=== PATIENT | male | born 1980 | race Native Hawaiian/Other Pacific Islander ===

== ENCOUNTER 2016-10-14 16:38 | Emergency (ER) | payer OTHER ==
[2016-10-14 16:56] VITALS: BP 136/79; PULSE 82; RESP 20; TEMP 98.1
--- NOTE | 2016-10-14 17:45 | ED ---
Extremity Problem HPI - General Chief complaint: Extremity Problem,Nontraumatic Stated complaint: Shoulder Pain Time Seen by Provider: 10/14/16 17:06 Source: patient, RN notes reviewed, old records reviewed Mode of arrival: ambulatory Limitations: no limitations - History of Present Illness Initial comments: This is a 36 year old male with CC of right shoulder pain for a few weeks. Pt reports right shoulder pain that started a couple of weeks ago, states his hand goes numb at times. Patient denies any falls or specific injury that he can recall that started the pain. - Related Data Previous Rx's Medication Instructions Recorded HYDROcodone/APAP 5-325MG [[place] 1 - 2 tab PO Q6HR PRN #12 tab 10/14/16 5-325] Ibuprofen [Motrin] 600 mg PO Q6HR PRN #30 tab 10/14/16 Allergies Allergy/AdvReac Type Severity Reaction Status Date / Time No Known Allergies Allergy Verified 10/14/16 16:56 Review of Systems ROS Statement: Those systems with pertinent positive or pertinent negative responses have been documented in the HPI. ROS Other: All systems not noted in ROS Statement are negative. Constitutional: Denies: fever Eyes: Denies: eye pain ENT: Denies: ear pain, throat pain Respiratory: Denies: cough Cardiovascular: Denies: chest pain Endocrine: Denies: fatigue Gastrointestinal: Denies: abdominal pain, nausea Genitourinary: Denies: urgency, dysuria Skin: Denies: rash Neurological: Denies: headache Psychiatric: Denies: anxiety, depression Past Medical History Past Medical History: No Reported History History of Any Multi-Drug Resistant Organisms: None Reported Past Surgical History: No Surgical Hx Reported Past Psychological History: No Psychological Hx Reported Smoking Status: Current every day smoker Past Alcohol Use History: None Reported Past Drug Use History: None Reported General Exam Limitations: no limitations General appearance: alert, in no apparent distress Head exam: Present: atraumatic, normocephalic, normal inspection Eye exam: Present: normal appearance, PERRL, EOMI. Absent: scleral icterus, conjunctival injection, periorbital swelling ENT exam: Present: normal exam, mucous membranes moist Respiratory exam: Present: normal lung sounds bilaterally. Absent: respiratory distress, wheezes, rales, rhonchi, stridor Cardiovascular Exam: Present: regular rate, normal rhythm, normal heart sounds. Absent: systolic murmur, diastolic murmur, rubs, gallop, clicks GI/Abdominal exam: Present: soft, normal bowel sounds. Absent: distended, tenderness, guarding, rebound, rigid Right Shoulder Exam: Present: normal inspection. Absent: full ROM (pain with abduction and unable to preform over head activity. ) Upper Arm exam: Present: normal inspection, full ROM Elbow exam: Present: normal inspection Forearm Wrist exam: Present: normal inspection Hand Wrist exam: Present: normal inspection Neuro motor exam: Present: wrist extension intact, thumb opposition intact, thumb IP flexion intact, thumb adduction intact, fingers 2-5 abduction intact Vascular: Present: normal capillary refill Back exam: Present: normal inspection Neurological exam: Present: alert, oriented X3, CN II-XII intact Course Vital Signs 10/14/16 16:54 Temperature 98.1 F Pulse Rate 82 Respiratory 20 Rate Blood Pressure 136/79 O2 Sat by Pulse 98 Oximetry Medical Decision Making - Medical Decision Making This is a 36 year old male with CC of right shoulder pain for a few weeks. Pt reports right shoulder pain that started a couple of weeks ago, states his hand goes numb at times. Patient denies any falls or specific injury that he can recall that started the pain. Patient has limited ROM of right shoulder due to pain. Patient has normal ROM of elbow and hand. No vascular compromise. Patient likely has rotator cuff injury and nees MRI of shoudler. Patient will be dsicharged with pain medication and sling applied. REturn parameters discussed. Disposition Clinical Impression: Injury of right rotator cuff Disposition: HOME SELF-CARE Condition: Good Instructions: Rotator Cuff Injury (ED) Additional Instructions: Patient has a follow-up with orthopedic physician. Return to emergency department if any alarming signs or symptoms occur. Prescriptions: HYDROcodone/APAP 5-325MG [[place] 5-325] 1 - 2 tab PO Q6HR PRN #12 tab PRN Reason: Pain Ibuprofen [Motrin] 600 mg PO Q6HR PRN #30 tab PRN Reason: Pain Referrals: None,Stated [Primary Care Provider] - 1-2 days Baltazar Barrett PAC [PHYSICIAN CARPENTER APPRENTICE] - 1-2 days Time of Disposition: 17:42
--- NOTE | 2016-10-18 03:04 | CDI ---
Documentation Clarification OP Dear BRIAN Ivory: Please do addendum to ED report for HPI and physical exam. Thank you, Yolanda Unger Crime Scene Investigator If you have any question, Please contact assistant finance manager at [phone] [facility]
== END 2016-10-14 17:56 | disposition home or self-care (01) ==
LOC: EC 16:38
DX: S46.001A Unspecified injury of muscle(s) and tendon(s) of the rotator cuff of right shoulder, initial encounter (principal); F17.200 Nicotine dependence, unspecified, uncomplicated; X58.XXXA Exposure to other specified factors, initial encounter
CPT/HCPCS: 99283

== ENCOUNTER 2019-02-21 14:38 | Emergency (ER) | payer OTHER ==
[2019-02-21 14:55] VITALS: BP 128/85; PULSE 63; RESP 18; TEMP 97.9
--- NOTE | 2019-02-21 16:42 | ED ---
Eye Problem HPI - General Chief complaint: Eye Problems Stated complaint: Eye issue, finger infection Time Seen by Provider: 02/21/19 16:01 Source: patient, RN notes reviewed, old records reviewed Mode of arrival: ambulatory Limitations: no limitations - History of Present Illness Initial comments: This is a 38-year-old male here for evaluation patient with right eye edema and swelling. Denies foreign body and his vision is normal. Patient denies trauma. Patient is swelling and redness is increasing feels a little white dot on his eyelashes. Otherwise no complaints. No significant medical history no recent travel history no family members with similar complaint MD chief complaint: eye pain, eye redness, other (Right eye swelling and edema, erythema) -: days(s) Onset Description: gradual Location: right eye Place: home If Injury: none Eye Symptoms: redness, itching Severity: mild If Pain, Quality: aching Consistency: constant Associated Symptoms: none Treatments Prior to Arrival: none - Related Data Patient Tetanus UTD: No Previous Rx's Medication Instructions Recorded HYDROcodone/APAP 5-325MG [[place] 1 - 2 tab PO Q6HR PRN #12 tab 10/14/16 5-325] Ibuprofen [Motrin] 600 mg PO Q6HR PRN #30 tab 10/14/16 Polymyxin B-Trimeth Sulf Ophth 1 drops RIGHT EYE Q4H #1 bottle 02/21/19 [Polytrim Opthalmic] Sulfamethox-Tmp 800-160Mg [Bactrim 2 tab PO BID #40 tab 02/21/19 DS 800-160 mg] Allergies Allergy/AdvReac Type Severity Reaction Status Date / Time No Known Allergies Allergy Verified 02/21/19 14:53 Review of Systems ROS Statement: Those systems with pertinent positive or pertinent negative responses have been documented in the HPI. ROS Other: All systems not noted in ROS Statement are negative. Past Medical History Past Medical History: No Reported History History of Any Multi-Drug Resistant Organisms: None Reported Past Surgical History: No Surgical Hx Reported Past Psychological History: No Psychological Hx Reported Smoking Status: Current every day smoker Past Alcohol Use History: None Reported Past Drug Use History: None Reported, Marijuana General Exam Limitations: no limitations General appearance: alert, in no apparent distress Head exam: Present: atraumatic, normocephalic, normal inspection Eye exam: Present: normal appearance, PERRL, EOMI, other (Right upper eyelid is swollen and red with some edema on his right eyelash). Absent: scleral icterus, conjunctival injection, periorbital swelling ENT exam: Present: normal exam, mucous membranes moist Neck exam: Present: normal inspection. Absent: tenderness, meningismus, lymphadenopathy Respiratory exam: Present: normal lung sounds bilaterally. Absent: respiratory distress, wheezes, rales, rhonchi, stridor Cardiovascular Exam: Present: regular rate, normal rhythm, normal heart sounds. Absent: systolic murmur, diastolic murmur, rubs, gallop, clicks GI/Abdominal exam: Present: soft, normal bowel sounds. Absent: distended, tenderness, guarding, rebound, rigid Extremities exam: Present: normal inspection, full ROM, normal capillary refill. Absent: tenderness, pedal edema, joint swelling, calf tenderness Back exam: Present: normal inspection Neurological exam: Present: alert, oriented X3, CN II-XII intact Psychiatric exam: Present: normal affect, normal mood Skin exam: Present: warm, dry, intact, normal color. Absent: rash Course Vital Signs 02/21/19 14:53 Temperature 97.9 F Pulse Rate 63 Respiratory 18 Rate Blood Pressure 128/85 O2 Sat by Pulse 98 Oximetry - Reevaluation(s) Reevaluation #1: 02/21/19 16:57 Records reviewed Reevaluation #2: 02/21/19 16:58 Patient's vision remains normal Medical Decision Making - Medical Decision Making 38 male to the ER for evaluation right eye edema and swelling, blepharitis will place on antibiotics patient can be discharged Disposition Clinical Impression: Blepharitis Disposition: HOME SELF-CARE Condition: Good Instructions (If sedation given, give patient instructions): Blepharitis (ED) Prescriptions: Sulfamethox-Tmp 800-160Mg [Bactrim DS 800-160 mg] 2 tab PO BID #40 tab Polymyxin B-Trimeth Sulf Ophth [Polytrim Opthalmic] 1 drops RIGHT EYE Q4H #1 bottle Is patient prescribed a controlled substance at d/c from ED?: No Referrals: Jorge Luis Valencia MD [Primary Care Provider] - 1-2 days
== END 2019-02-21 17:05 | disposition home or self-care (01) ==
LOC: EC 14:38
DX: H01.003 Unspecified blepharitis right eye, unspecified eyelid (principal); F17.200 Nicotine dependence, unspecified, uncomplicated
CPT/HCPCS: 99283

== ENCOUNTER 2019-05-29 03:35 | Inpatient (IN) | payer OTHER ==
[2019-05-29] MEDS ORDERED: ACETAMINOPHEN TAB 325 MG TAB PO STA (04:20)
[2019-05-29] MEDS ORDERED: SODIUM CHLORIDE 0.9% 1,000 ML IV STA (04:20)
--- NOTE | 2019-05-29 04:34 | ED ---
Abdominal Pain HPI - General Chief Complaint: Abdominal Pain Stated Complaint: Constipation/SOB Source: patient, family Mode of arrival: ambulatory Limitations: no limitations - History of Present Illness Initial Comments: Luis is a previously healthy 38-year-old male presents the ER today for evaluation of 3 days of progressively worsening left lower quadrant abdominal pain, fever. Patient reports that over the past 3 days he's had progressively worsening abdominal pain nothing makes better, it gets worse with any palpation or even just deep breathing or movement. Patient denies any change in bowel or bladder habits. Patient has never had a colonoscopy. - Related Data Previous Rx's Medication Instructions Recorded HYDROcodone/APAP 5-325MG [[place] 1 - 2 tab PO Q6HR PRN #12 tab 10/14/16 5-325] Ibuprofen [Motrin] 600 mg PO Q6HR PRN #30 tab 10/14/16 Polymyxin B-Trimeth Sulf Ophth 1 drops RIGHT EYE Q4H #1 bottle 02/21/19 [Polytrim Opthalmic] Sulfamethox-Tmp 800-160Mg [Bactrim 2 tab PO BID #40 tab 02/21/19 DS 800-160 mg] Allergies Allergy/AdvReac Type Severity Reaction Status Date / Time bee venom protein (honey bee) Allergy Severe Anaphylaxis Verified 05/29/19 03:45 Review of Systems ROS Statement: Those systems with pertinent positive or pertinent negative responses have been documented in the HPI. ROS Other: All systems not noted in ROS Statement are negative. Past Medical History Past Medical History: No Reported History History of Any Multi-Drug Resistant Organisms: None Reported Past Surgical History: No Surgical Hx Reported Past Psychological History: No Psychological Hx Reported Smoking Status: Current every day smoker Past Alcohol Use History: None Reported Past Drug Use History: Marijuana General Exam - General Exam Comments Initial Comments: Physical Exam GENERAL: Patient is well-developed and well-nourished. Patient is nontoxic and well- hydrated and is in no distress. HENT: Normocephalic, Atraumatic. EYES: PERRL, EOMI PULMONARY: Unlabored respirations. No audible rales rhonchi or wheezing was noted. CARDIOVASCULAR: There is a regular rate and rhythm without any murmurs gallops or rubs. ABDOMEN: Tenderness to palpation in the left lower quadrant SKIN: Skin is clear with no lesions or rashes and otherwise unremarkable. : Deferred NEUROLOGIC: Patient is alert and oriented x3. Moving all extremities spontaneously MUSCULOSKELETAL: Normal extremities with adequate strength and full range of motion. No lower extremity swelling or edema. No calf tenderness. PSYCHIATRIC: Normal psychiatric evaluation. Limitations: no limitations Course Vital Signs 05/29/19 05/29/19 05/29/19 03:41 03:58 05:59 Temperature 100.1 F H 102.1 F H 99.2 F Pulse Rate 86 66 Respiratory 18 16 Rate Blood Pressure 134/91 115/72 O2 Sat by Pulse 97 97 Oximetry Medical Decision Making - Medical Decision Making The patient was seen and evaluated, history was obtained from the patient history and physical exam are concerning for likely diverticulitis as there is a fever and significant left lower quadrant abdominal pain Labs and imaging ordered Patient was given morphine for pain management Patient's fever and heart rate improved after Tylenol, labs consistent with leukocytosis no significant abnormalities Computed tomography scan did confirm a diverticulitis with microperforations. These findings were discussed with patient's primary care physician Dr. Valencia who agrees with plan for admission for IV antibiotics. - Lab Data Result diagrams: 05/29/19 04:06 05/29/19 04:06 Lab Results 05/29/19 05/29/19 05/29/19 Range/Units 04:06 04:06 04:06 WBC 16.7 H (3.8-10.6) k/uL RBC 4.66 (4.30-5.90) m/uL Hgb 15.0 (13.0-17.5) gm/dL Hct 44.7 (39.0-53.0) % MCV 96.0 (80.0-100.0) fL MCH 32.3 (25.0-35.0) pg MCHC 33.6 (31.0-37.0) g/dL RDW 12.9 (11.5-15.5) % Plt Count 216 (150-450) k/uL Neutrophils % 78 % Lymphocytes % 13 % Monocytes % 7 % Eosinophils % 1 % Basophils % 0 % Neutrophils # 13.1 H (1.3-7.7) k/uL Lymphocytes # 2.1 (1.0-4.8) k/uL Monocytes # 1.1 H (0-1.0) k/uL Eosinophils # 0.1 (0-0.7) k/uL Basophils # 0.1 (0-0.2) k/uL Sodium 133 L (137-145) mmol/L Potassium 3.8 (3.5-5.1) mmol/L Chloride 102 (98-107) mmol/L Carbon Dioxide 23 (22-30) mmol/L Anion Gap 8 mmol/L BUN 9 (9-20) mg/dL Creatinine 0.91 (0.66-1.25) mg/dL Est GFR (CKD-EPI)AfAm >90 (>60 ml/min/1.73 sqM) Est GFR (CKD-EPI)NonAf >90 (>60 ml/min/1.73 sqM) Glucose 140 H (74-99) mg/dL Plasma Lactic Acid Luan 0.9 (0.7-2.0) mmol/L Calcium 8.7 (8.4-10.2) mg/dL Total Bilirubin 1.1 (0.2-1.3) mg/dL AST 38 (17-59) U/L ALT 39 (4-49) U/L Alkaline Phosphatase 74 (38-126) U/L Total Protein 6.7 (6.3-8.2) g/dL Albumin 4.0 (3.5-5.0) g/dL Lipase 32 (23-300) U/L Urine Color Urine Appearance (Clear) Urine pH (5.0-8.0) Ur Specific [place] (1.001-1.035) Urine Protein (Negative) Urine Glucose (UA) (Negative) Urine Ketones (Negative) Urine Blood (Negative) Urine Nitrite (Negative) Urine Bilirubin (Negative) Urine Urobilinogen (<2.0) mg/dL Ur Leukocyte Esterase (Negative) Influenza Type A RNA (Not Detectd) Influenza Type B (PCR) (Not Detectd) 05/29/19 05/29/19 Range/Units 04:06 05:19 WBC (3.8-10.6) k/uL RBC (4.30-5.90) m/uL Hgb (13.0-17.5) gm/dL Hct (39.0-53.0) % MCV (80.0-100.0) fL MCH (25.0-35.0) pg MCHC (31.0-37.0) g/dL RDW (11.5-15.5) % Plt Count (150-450) k/uL Neutrophils % % Lymphocytes % % Monocytes % % Eosinophils % % Basophils % % Neutrophils # (1.3-7.7) k/uL Lymphocytes # (1.0-4.8) k/uL Monocytes # (0-1.0) k/uL Eosinophils # (0-0.7) k/uL Basophils # (0-0.2) k/uL Sodium (137-145) mmol/L Potassium (3.5-5.1) mmol/L Chloride (98-107) mmol/L Carbon Dioxide (22-30) mmol/L Anion Gap mmol/L BUN (9-20) mg/dL Creatinine (0.66-1.25) mg/dL Est GFR (CKD-EPI)AfAm (>60 ml/min/1.73 sqM) Est GFR (CKD-EPI)NonAf (>60 ml/min/1.73 sqM) Glucose (74-99) mg/dL Plasma Lactic Acid Luan (0.7-2.0) mmol/L Calcium (8.4-10.2) mg/dL Total Bilirubin (0.2-1.3) mg/dL AST (17-59) U/L ALT (4-49) U/L Alkaline Phosphatase (38-126) U/L Total Protein (6.3-8.2) g/dL Albumin (3.5-5.0) g/dL Lipase (23-300) U/L Urine Color Light Yellow Urine Appearance Clear (Clear) Urine pH 6.0 (5.0-8.0) Ur Specific [place] 1.008 (1.001-1.035) Urine Protein Negative (Negative) Urine Glucose (UA) Negative (Negative) Urine Ketones Negative (Negative) Urine Blood Negative (Negative) Urine Nitrite Negative (Negative) Urine Bilirubin Negative (Negative) Urine Urobilinogen <2.0 (<2.0) mg/dL Ur Leukocyte Esterase Negative (Negative) Influenza Type A RNA Not Detected (Not Detectd) Influenza Type B (PCR) Not Detected (Not Detectd) Disposition Clinical Impression: Diverticulitis large intestine Disposition: ADMITTED IP TO THIS [facility] Condition: Stable Is patient prescribed a controlled substance at d/c from ED?: No Referrals: Jorge Luis Valencia MD [Primary Care Provider] - 1-2 days
[2019-05-29 04:47] LABS: Basophils # (A) 0.1 k/uL (0-0.2); Basophils % (A) 0 %; Eosinophils # (A) 0.1 k/uL (0-0.7); Eosinophils % (A) 1 %; HCT 44.7 % (39.0-53.0); Lymphocytes # (A) 2.1 k/uL (1.0-4.8); Lymphocytes % (A) 13 %; MCH 32.3 pg (25.0-35.0); MCHC 33.6 g/dL (31.0-37.0); Mean Platelet Volume 8.8; Monocytes # (A) 1.1 k/uL (0-1.0); Monocytes % (A) 7 %; Neutrophils # (A) 13.1 k/uL (1.3-7.7); Neutrophils % (A) 78 %; Platelet Count 216 k/uL (150-450); RBC 4.66 m/uL (4.30-5.90); RDW 12.9 % (11.5-15.5); WBC 16.7 k/uL (3.8-10.6)
--- NOTE | 2019-05-29 04:53 | XR ---
EXAMINATION TYPE: XR chest 2V DATE OF EXAM: 05/29/2019 COMPARISON: NONE HISTORY: Cough and fever TECHNIQUE: FINDINGS: Heart and mediastinum are normal. Lungs are clear. Diaphragm is normal. Bony thorax appears normal. IMPRESSION: Normal chest
--- NOTE | 2019-05-29 04:54 | XR ---
EXAMINATION TYPE: XR abdomen 2V DATE OF EXAM: 05/29/2019 COMPARISON: NONE HISTORY: Abdominal pain TECHNIQUE: Supine and upright views FINDINGS: Bowel gas pattern is normal. There is no sign of intestinal obstruction or pneumoperitoneum . Fecal pattern is normal. There is no evidence of a mass. Lung bases are clear. There are no patholo gic calcifications over the kidneys. IMPRESSION: Nonacute abdomen.
[2019-05-29 04:56] LABS: ALT 39 U/L (4-49); AST 38 U/L (17-59); African American GFR (CKD) >90 (>60 ml/min/1.73 sqM); Alkaline Phosphatase 74 U/L (38-126); Anion Gap 8 mmol/L; Blood Urea Nitrogen 9 mg/dL (9-20); Calcium 8.7 mg/dL (8.4-10.2); Carbon Dioxide 23 mmol/L (22-30); Chloride 102 mmol/L (98-107); Glucose 140 mg/dL (74-99); Non-African American GFR(CKD) >90 (>60 ml/min/1.73 sqM); Potassium 3.8 mmol/L (3.5-5.1); Sodium 133 mmol/L (137-145); Total Bilirubin 1.1 mg/dL (0.2-1.3); Total Protein 6.7 g/dL (6.3-8.2)
[2019-05-29 05:26] LABS: Appearance,Urine Clear (Clear); Bilirubin,Urine Negative (Negative); Blood,Urine Negative (Negative); Color,Urine Light Yellow; Glucose,Urine (UA) Negative (Negative); Ketones,Urine Negative (Negative); Leukocyte Esterase,Urine Negative (Negative); Nitrite,Urine Negative (Negative); Protein,Urine Negative (Negative); Specific Gravity,Urine 1.008 (1.001-1.035); Urobilinogen,Urine <2.0 mg/dL (<2.0)
[2019-05-29] MEDS ORDERED: MORPHINE SULFATE 4 MG/ML SYRINGE IVP STA (05:32)
--- NOTE | 2019-05-29 06:04 | CT ---
EXAM: CT Abdomen and Pelvis With Intravenous Contrast CLINICAL HISTORY: ITS.REASON CT Reason: LLQ pain TECHNIQUE: Axial computed tomography images of the abdomen and pelvis with intravenous contrast. CTDI is 18 mGy and DLP is 541 mGy-cm. This CT exam was performed using one or more of the following dose reduction techniques: automated exposure control, adjustment of the mA and/or kV according to patient size, and/or use of iterative reconstruction technique. COMPARISON: No relevant prior studies available. FINDINGS: Lung bases: No mass. No consolidation. ABDOMEN: Liver: Mild hepatomegaly with steatosis. Gallbladder and bile ducts: Unremarkable. Pancreas: Unremarkable. Spleen: Unremarkable. Adrenals: Unremarkable. Kidneys and ureters: No hydronephrosis. Stomach and bowel: No bowel obstruction. Thickened and inflamed sigmoid colon with underlying diverticulosis. PELVIS: Appendix: No evidence of appendicitis. Bladder: Unremarkable. Reproductive: Unremarkable. ABDOMEN and PELVIS: Intraperitoneal space: Few foci of localized free air adjacent to the sigmoid colon.. Bones/joints: No acute fractures. Soft tissues: Unremarkable. Vasculature: No abdominal aortic aneurysm. Lymph nodes: No enlarged lymph nodes. IMPRESSION: There is thickened sigmoid colon with surrounding inflammation and underlying colonic diverticulosis. Findings are compatible with acute diverticulitis. There is evidence of microperforation as demonstrated by few foci of free air localized outside of the sigmoid colon. Mild hepatomegaly with steatosis.
[2019-05-29] MEDS ORDERED: cefTRIAXone IN SWFI 1,000 MG/10 ML SYRINGE IVP STA (06:10)
[2019-05-29] MEDS ORDERED: metroNIDAZOLE-NS PMX 500 MG in SALINE 1 100ML.BAG IVPB STA (06:11)
[2019-05-29] MEDS ORDERED: NALOXONE 0.4 MG/ML 1 ML VIAL IV PRN (06:37)
[2019-05-29] MEDS ORDERED: ONDANSETRON 4 MG/2 ML VIAL IVP PRN (06:37)
[2019-05-29] MEDS: SODIUM CHLORIDE 0.9% 1,000 ML IV SCH ×3 (07:03→22:58)
[2019-05-29] MEDS: MORPHINE SULFATE 4 MG/ML SYRINGE IV PRN (10:30)
--- NOTE | 2019-05-29 12:42 | P.GSCN ---
<Tanna Castellanos - Last Filed: 05/29/19 12:42> History of Present Illness Consult date: 05/29/19 Reason for Consult: diverticulitis Requesting physician: Jorge Luis Valencia History of present illness: CHIEF COMPLAINT: Abdominal pain HISTORY OF PRESENT ILLNESS: 38-year-old male presented to the emergency room with a chief complaint of abdominal pain. Patient reports he began having abdominal pain on Saturday. He thought he had food poisoning initially. He reports eating pizza and an apple and his pain became so severe that he came to the emergency room. Patient denies nausea or vomiting. Denies diarrhea or consultation. Reports having loose stools at baseline for the last 10-15 years. Denies fever or chills. Patient denies previous history of diverticulitis. Denies family history of diverticulosis. Patient reports having a colonoscopy approximately 15 years ago after traumatic fall from a roof because they thought he was bleeding from his colon. PAST MEDICAL HISTORY: See list. PAST SURGICAL HISTORY: See list. SOCIAL HISTORY: No illicit drug use. Reports smoking cigarettes. REVIEW OF SYSTEMS: CONSTITUTIONAL: Denies fever or chills. HEENT: Denies blurred vision, vision changes, or eye pain. Denies hemoptysis CARDIOVASCULAR: Denies chest pain or pressure. RESPIRATORY: No shortness of breath. GASTROINTESTINAL: Refer to HPI for pertinent findings HEMATOLOGIC: Denies bleeding disorders. GENITOURINARY: Denies any blood in urine. SKIN: Denies pruitis. Denies rash. PHYSICAL EXAM: VITAL SIGNS: Reviewed. GENERAL: Well-developed in no acute distress. HEENT: No sclera icterus. Extraocular movements grossly intact. Moist buccal mucosa. Head is atraumatic, normocephalic. ABDOMEN: Soft. Nondistended. Tenderness with mild palpation to left lower quadrant. NEUROLOGIC: Alert and oriented. Cranial nerves II through XII grossly intact. LABORATORY DATA: WBC 16.7. Hemoglobin 15.0. Platelet count 216. Neutrophils 13.1. Sodium 133. Potassium 3.8. BUN 9. Creatinine 0.91. Lactic acid 0.9. IMAGING: CT abdomen and pelvis: Thickened sigmoid colon with surrounding inflammation and underlying colonic diverticulosis. Findings are compatible with acute diverticulitis. There is evidence of microperforation as demonstrated by few foci of free air localized outside of the sigmoid colon. ASSESSMENT: 1. Left lower quadrant abdominal pain 2. Acute diverticulitis with microperforation 3. Leukocytosis PLAN: Bowel rest. NPO except ice chips sparingly. Continue IV fluids Begin Zosyn Q8 hours Monitor WBC Consult dietitian for diverticulitis education Patient will require outpatient colonoscopy in 4-6 weeks when acute phase has resolved No surgical intervention recommended at this time Nurse practitioner note has been reviewed by physician. Signing provider agrees with the documented findings, assessment, and plan of care. Past Medical History Past Medical History: No Reported History History of Any Multi-Drug Resistant Organisms: None Reported Past Surgical History: No Surgical Hx Reported Past Anesthesia/Blood Transfusion Reactions: Unable to Obtain Additional Past Anesthesia/Blood Transfusion Reaction / Comm: Pt has never had surgery. Smoking Status: Current every day smoker - Past Family History Father Family Medical History: Hypertension Additional Family Medical History / Comment(s): Rasta toscano Mother Family Medical History: CVA/TIA Additional Family Medical History / Comment(s): bradycardia Medications and Allergies Home Medications Medication Instructions Recorded Confirmed Type No Known Home Medications 05/29/19 05/29/19 History Allergies Allergy/AdvReac Type Severity Reaction Status Date / Time bee venom protein (honey bee) Allergy Severe Anaphylaxis Verified 05/29/19 10:38 Surgical - Exam Vital Signs Temp Pulse Resp BP Pulse Ox 100.1 F H 86 18 134/91 97 05/29/19 03:41 05/29/19 03:41 05/29/19 03:41 05/29/19 03:41 05/29/19 03:41 Results - Labs 05/29/19 04:06 05/29/19 04:06 Abnormal Lab Results - Last 24 Hours (Table) 05/29/19 05/29/19 Range/Units 04:06 04:06 WBC 16.7 H (3.8-10.6) k/uL Neutrophils # 13.1 H (1.3-7.7) k/uL Monocytes # 1.1 H (0-1.0) k/uL Sodium 133 L (137-145) mmol/L Glucose 140 H (74-99) mg/dL Diabetes panel 05/29/19 Range/Units 04:06 Sodium 133 L (137-145) mmol/L Potassium 3.8 (3.5-5.1) mmol/L Chloride 102 (98-107) mmol/L Carbon Dioxide 23 (22-30) mmol/L BUN 9 (9-20) mg/dL Creatinine 0.91 (0.66-1.25) mg/dL Glucose 140 H (74-99) mg/dL Calcium 8.7 (8.4-10.2) mg/dL AST 38 (17-59) U/L ALT 39 (4-49) U/L Alkaline Phosphatase 74 (38-126) U/L Total Protein 6.7 (6.3-8.2) g/dL Albumin 4.0 (3.5-5.0) g/dL Calcium panel 05/29/19 Range/Units 04:06 Calcium 8.7 (8.4-10.2) mg/dL Albumin 4.0 (3.5-5.0) g/dL Pituitary panel 05/29/19 Range/Units 04:06 Sodium 133 L (137-145) mmol/L Potassium 3.8 (3.5-5.1) mmol/L Chloride 102 (98-107) mmol/L Carbon Dioxide 23 (22-30) mmol/L BUN 9 (9-20) mg/dL Creatinine 0.91 (0.66-1.25) mg/dL Glucose 140 H (74-99) mg/dL Calcium 8.7 (8.4-10.2) mg/dL Adrenal panel 05/29/19 Range/Units 04:06 Sodium 133 L (137-145) mmol/L Potassium 3.8 (3.5-5.1) mmol/L Chloride 102 (98-107) mmol/L Carbon Dioxide 23 (22-30) mmol/L BUN 9 (9-20) mg/dL Creatinine 0.91 (0.66-1.25) mg/dL Glucose 140 H (74-99) mg/dL Calcium 8.7 (8.4-10.2) mg/dL Total Bilirubin 1.1 (0.2-1.3) mg/dL AST 38 (17-59) U/L ALT 39 (4-49) U/L Alkaline Phosphatase 74 (38-126) U/L Total Protein 6.7 (6.3-8.2) g/dL Albumin 4.0 (3.5-5.0) g/dL <Blade Bobo - Last Filed: 05/29/19 14:57> History of Present Illness History of present illness: As above. Patient with diverticulitis with localized perforation with small amount of air seen in the sigmoid colon mesentery. Patient says his pain is improved. Will begin clear liquids. Continue broad-spectrum antibiotics. Recheck labs tomorrow. Surgical - Exam Vital Signs Temp Pulse Resp BP Pulse Ox 100.1 F H 86 18 134/91 97 05/29/19 03:41 05/29/19 03:41 05/29/19 03:41 05/29/19 03:41 05/29/19 03:41 Results - Labs 05/29/19 04:06 05/29/19 04:06 Abnormal Lab Results - Last 24 Hours (Table) 05/29/19 05/29/19 Range/Units 04:06 04:06 WBC 16.7 H (3.8-10.6) k/uL Neutrophils # 13.1 H (1.3-7.7) k/uL Monocytes # 1.1 H (0-1.0) k/uL Sodium 133 L (137-145) mmol/L Glucose 140 H (74-99) mg/dL Diabetes panel 05/29/19 Range/Units 04:06 Sodium 133 L (137-145) mmol/L Potassium 3.8 (3.5-5.1) mmol/L Chloride 102 (98-107) mmol/L Carbon Dioxide 23 (22-30) mmol/L BUN 9 (9-20) mg/dL Creatinine 0.91 (0.66-1.25) mg/dL Glucose 140 H (74-99) mg/dL Calcium 8.7 (8.4-10.2) mg/dL AST 38 (17-59) U/L ALT 39 (4-49) U/L Alkaline Phosphatase 74 (38-126) U/L Total Protein 6.7 (6.3-8.2) g/dL Albumin 4.0 (3.5-5.0) g/dL Calcium panel 05/29/19 Range/Units 04:06 Calcium 8.7 (8.4-10.2) mg/dL Albumin 4.0 (3.5-5.0) g/dL Pituitary panel 05/29/19 Range/Units 04:06 Sodium 133 L (137-145) mmol/L Potassium 3.8 (3.5-5.1) mmol/L Chloride 102 (98-107) mmol/L Carbon Dioxide 23 (22-30) mmol/L BUN 9 (9-20) mg/dL Creatinine 0.91 (0.66-1.25) mg/dL Glucose 140 H (74-99) mg/dL Calcium 8.7 (8.4-10.2) mg/dL Adrenal panel 05/29/19 Range/Units 04:06 Sodium 133 L (137-145) mmol/L Potassium 3.8 (3.5-5.1) mmol/L Chloride 102 (98-107) mmol/L Carbon Dioxide 23 (22-30) mmol/L BUN 9 (9-20) mg/dL Creatinine 0.91 (0.66-1.25) mg/dL Glucose 140 H (74-99) mg/dL Calcium 8.7 (8.4-10.2) mg/dL Total Bilirubin 1.1 (0.2-1.3) mg/dL AST 38 (17-59) U/L ALT 39 (4-49) U/L Alkaline Phosphatase 74 (38-126) U/L Total Protein 6.7 (6.3-8.2) g/dL Albumin 4.0 (3.5-5.0) g/dL
[2019-05-29 16:01] VITALS: BMI 33.3
[2019-05-29] MEDS: metroNIDAZOLE-NS PMX 500 MG in SALINE 1 100ML.BAG IVPB SCH ×2 (16:20→22:57)
[2019-05-29] MEDS: HYDROmorphone 1 MG/ML 1 ML SYRINGE IVP PRN ×2 (17:00→22:35)
[2019-05-29] MEDS: PIPERACILLIN-TAZOBACTAM 3.375 GM in SODIUM CHLORIDE 0.9% 100 ML IVPB SCH ×2 (17:01→23:21)
--- NOTE | 2019-05-29 20:24 | HP ---
HISTORY AND PHYSICAL CHIEF COMPLAINT: Three or four day history of left lower quadrant pain. HISTORY OF PRESENT ILLNESS: This is a first time admission for this 38-year-old gentleman. He presented to the emergency room with left lower quadrant pain. He was found to have what sounds like diverticulitis with microperforations. He has not had this problem in the past. He is otherwise in fairly good health. REVIEW OF SYSTEMS: He has had no headaches, neurologic problems, difficulty with vision or hearing, chest pain, cough, hemoptysis, hypertension, heart disease, palpitations, nausea, vomiting, hematemesis, melena, hematochezia, jaundice, hepatitis, cirrhosis, renal failure, hematuria, dysuria, frequency, urgency, diabetes, etc. Past medical history, family history, and social history unremarkable or noncontributory otherwise. He is not taking any medications and he is NOT ALLERGIC TO ANY. He has had no surgery. He does smoke. PHYSICAL EXAMINATION: Blood pressure 146/90 with a pulse 68, respirations 16, temperature of 100.2. In general, he appeared to be well-developed, well-nourished, and somewhat uncomfortable. Skin is dry. Lymph nodes are not enlarged. Head, ears, eyes, nose, mouth, and throat are normal. Neck veins not distended. Thyroid is enlarged. Chest clear. Cardiac exam is normal. Abdomen is slightly protuberant. He is very tender in the left lower quadrant with guarding. Bowel sounds are not heard. There are no definite masses. Extremities normal. Neurologically he is intact. IMPRESSION: Acute diverticulitis. PLAN: 1. Bed rest. 2. IV fluids. 3. He will remain NPO. 4. IV antibiotics. 5. Surgical consult for standby. MMODL / IJN: [id number] /
[2019-05-30] MEDS: MORPHINE SULFATE 4 MG/ML SYRINGE IV PRN ×4 (03:53→20:02)
[2019-05-30 06:05] LABS: Basophils % (A) 0 %; Eosinophils # (A) 0.1 k/uL (0-0.7); Eosinophils % (A) 1 %; HCT 39.2 % (39.0-53.0); HGB 12.8 gm/dL (13.0-17.5); Lymphocytes % (A) 17 %; MCH 32.2 pg (25.0-35.0); MCHC 32.6 g/dL (31.0-37.0); MCV 98.6 fL (80.0-100.0); Mean Platelet Volume 8.8; Monocytes % (A) 8 %; Neutrophils # (A) 8.5 k/uL (1.3-7.7); Neutrophils % (A) 72 %; Platelet Count 195 k/uL (150-450); RBC 3.97 m/uL (4.30-5.90); RDW 12.9 % (11.5-15.5); WBC 11.8 k/uL (3.8-10.6)
[2019-05-30] MEDS: metroNIDAZOLE-NS PMX 500 MG in SALINE 1 100ML.BAG IVPB SCH ×3 (08:21→23:10)
[2019-05-30] MEDS: SODIUM CHLORIDE 0.9% 1,000 ML IV SCH ×2 (08:22→14:51)
[2019-05-30] MEDS ORDERED: PANTOPRAZOLE 40 MG/10 ML VIAL IVP SCH (09:00)
[2019-05-30] MEDS: PIPERACILLIN-TAZOBACTAM 3.375 GM in SODIUM CHLORIDE 0.9% 100 ML IVPB SCH ×3 (09:24→23:10)
[2019-05-30] MEDS ORDERED: NICOTINE 21MG/24HR PATCH TRANSDERM SCH (11:30)
--- NOTE | 2019-05-30 11:50 | PN ---
PROGRESS NOTE DATE OF SERVICE: 05/30/2019 CHIEF COMPLAINT: Diverticulitis. HISTORY OF PRESENT ILLNESS: This gentleman is still having quite a bit of discomfort in the left lower quadrant. He wants to leave the hospital. He is upset because he cannot eat and his is not allowed to visit due to the COVID-19 restrictions. PHYSICAL EXAMINATION: Chest is clear. Cardiac exam is normal. The abdomen is still very tender in the left lower quadrant, mid lower abdomen and right lower quadrant. Bowel sounds are present. IMPRESSION: Diverticulitis with microperforations. PLAN: Continue with IV fluids and antibiotics and recommend not leaving the hospital. Will wait to receive other information from Surgery. MMODL / IJN: [id number] /
--- NOTE | 2019-05-30 14:30 | PN ---
PROGRESS NOTE CHIEF COMPLAINT: Diverticulitis. SUBJECTIVE: The patient is complaining of crampy abdominal pain today. He says it is about the same as yesterday. He is afebrile. He is still having bowel activity. No vomiting. White blood cell count is 11.8. OBJECTIVE: ABDOMEN: Soft. Mild left lower quadrant tenderness. No rebound or guarding. ASSESSMENT: [id number] male with diverticulitis. PLAN: 1. Continue clear liquid diet. 2. Continue broad-spectrum antibiotics. 3. Ambulate. 4. Nicotine patch. MMODL / IJN: [id number] /
[2019-05-31] MEDS: MORPHINE SULFATE 4 MG/ML SYRINGE IV PRN (03:31)
[2019-05-31 03:56] VITALS: BP 134/77; PULSE 61; RESP 16; TEMP 97.4
[2019-05-31] MEDS: SODIUM CHLORIDE 0.9% 1,000 ML IV SCH (04:35)
--- NOTE | 2019-06-01 23:50 | DS ---
DISCHARGE SUMMARY DATE OF DISCHARGE: 05/31/2019 CHIEF COMPLAINT: Diverticulitis. HISTORY OF PRESENT ILLNESS AND PHYSICAL EXAMINATION: Details of this man's history and physical can be found in the initial workup. LABORATORY STUDIES: While he was in the hospital he had laboratory studies, details of which can be found in the laboratory section of his chart. COURSE IN THE HOSPITAL: After admission he was placed on bedrest and started on intravenous fluids and IV antibiotics. Temperature came down and his pain was improving. He seemed to be doing well. He was anxious to be discharged on 05/29 and then he signed himself out at 6 in the morning on 05/30. I was not notified that he left the hospital. FINAL DIAGNOSIS: Diverticulitis. OPERATIONS: None. CONSULTATION: General Surgery. He is not improved. MMODL / IJN: [id number] /
== END 2019-05-31 06:45 | disposition home or self-care (01) | DRG 392 ==
LOC: EC 03:35 → 5NMEDONC 06:37
PROVIDERS: ADMIT Family Medicine; ATTEND Family Medicine
DX: K57.20 Diverticulitis of large intestine with perforation and abscess without bleeding (principal); F17.210 Nicotine dependence, cigarettes, uncomplicated; Z91.030 Bee allergy status; Z82.3 Family history of stroke; Z82.49 Family history of ischemic heart disease and other diseases of the circulatory system
CPT/HCPCS: 36415; 71046; 74019; 74177; 80053; 81003; 83605; 83690; 85025; 87502; 96361; 96365; 96375; 99285

== ENCOUNTER 2020-04-06 19:58 | Emergency (ER) | payer OTHER ==
[2020-04-06 20:09] VITALS: BP 150/93; PULSE 86; RESP 20; TEMP 97.6
--- NOTE | 2020-04-06 20:51 | XR ---
EXAMINATION TYPE: XR wrist complete RT DATE OF EXAM: 04/06/2020 COMPARISON: NONE HISTORY: Pain. Fall. TECHNIQUE: 4 views FINDINGS: Carpal bones are intact. Radiocarpal joint appears normal. Scaphoid is intact. There is jhonny e lucency at the base of the fourth metacarpal that could be a nondisplaced fracture. IMPRESSION: Possible nondisplaced fracture of the base of the fourth metacarpal.
--- NOTE | 2020-04-06 20:52 | XR ---
EXAMINATION TYPE: XR forearm RT DATE OF EXAM: 04/06/2020 COMPARISON: NONE HISTORY: Fall. Pain. TECHNIQUE: 2 views FINDINGS: Radius and ulna appear intact. I see no fracture nor dislocation. The elbow joint and radio carpal joint appear intact. IMPRESSION: No acute abnormality of the right forearm.
--- NOTE | 2020-04-06 20:54 | XR ---
EXAMINATION TYPE: XR hand complete RT DATE OF EXAM: 04/06/2020 COMPARISON: NONE HISTORY: Fall. Pain. TECHNIQUE: 3 views FINDINGS: There is oblique lucency through the base of the fourth metacarpal that could be a nondispl aced fracture. The carpal bones are intact. The fingers are intact. IMPRESSION: Possible nondisplaced fourth metacarpal fracture.
[2020-04-06] MEDS ORDERED: HYDROcodone/APAP 5-325MG 1 EACH TAB PO STA (21:03)
--- NOTE | 2020-04-06 21:37 | ED ---
Upper Extremity HPI - General Chief Complaint: Extremity Injury, Upper Stated Complaint: Fall-R hand injury Time Seen by Provider: 04/06/20 20:35 Source: patient Mode of arrival: ambulatory Limitations: no limitations - History of Present Illness Initial Comments: Patient is a 39-year-old male presenting to the emergency Department with complaints of right upper extremity pain after a fall today. Patient states she slipped and fell down a couple stairs at his house this morning. He states he put out his right hand to block his face from hitting the floor. He denies any other injuries or pain from this fall other than pain in his right wrist and right arm. He denies any chest pain, no abdominal pain no pain in any of the 3 other extremities. He has no further complaints from this fall. He is not on blood thinners. - Related Data Home Medications Medication Instructions Recorded Confirmed No Known Home Medications 05/29/19 05/29/19 Allergies Allergy/AdvReac Type Severity Reaction Status Date / Time bee venom protein (honey bee) Allergy Severe Anaphylaxis Verified 04/06/20 20:05 Review of Systems ROS Statement: Those systems with pertinent positive or pertinent negative responses have been documented in the HPI. ROS Other: All systems not noted in ROS Statement are negative. Past Medical History Past Medical History: No Reported History History of Any Multi-Drug Resistant Organisms: None Reported Past Surgical History: No Surgical Hx Reported Past Anesthesia/Blood Transfusion Reactions: Unable to Obtain Additional Past Anesthesia/Blood Transfusion Reaction / Comment(s): Pt has never had surgery. Past Psychological History: No Psychological Hx Reported Smoking Status: Current every day smoker Past Alcohol Use History: None Reported Past Drug Use History: Marijuana - Past Family History Father Family Medical History: Hypertension Additional Family Medical History / Comment(s): Pettibone palsey Mother Family Medical History: CVA/TIA Additional Family Medical History / Comment(s): bradycardia General Exam - General Exam Comments Initial Comments: GENERAL: Patient is well-developed and well-nourished. Patient is nontoxic and in no acute distress. HEAD: Atraumatic, normocephalic. EYES: Pupils equal round and reactive to light, extraocular movements intact, sclera anicteric, conjunctiva are normal. Eyelids were unremarkable. ENT: TMs normal, nares patent, oropharynx clear without exudates. Moist mucous membranes. NECK: Normal range of motion, supple without lymphadenopathy or JVD. LUNGS: Unlabored respirations. Breath sounds clear to auscultation bilaterally and equal. No wheezes rales or rhonchi. HEART: Regular rate and rhythm without murmurs, rubs or gallops. ABDOMEN: Soft, nontender, normoactive bowel sounds. No guarding, no rebound. No masses appreciated. : Deferred MUSCULOSKELETAL: Patient has some swelling to the dorsal aspect of the right hand, pain with palpation of the right hand and right wrist. He does have pain with supination. No pain of the right shoulder, upper arm or right elbow. No clubbing or cyanosis. NEUROLOGICAL: Patient is alert and oriented x 3. Motor and sensory are also intact. Cranial nerves II through XII grossly intact. Symmetrical smile. Normal speech, normal gait. PSYCH: Normal mood, normal affect. SKIN: Warm, Dry, normal turgor, no rashes or lesions noted. Limitations: no limitations Course Vital Signs 04/06/20 20:02 Temperature 97.6 F Pulse Rate 86 Respiratory 20 Rate Blood Pressure 150/93 O2 Sat by Pulse 98 Oximetry Procedures - Orthopedic Splinting/Casting Injury #1 Side: right Upper Extremity Injury Location: hand Upper Extremity Immobilizer: posterior splint, French wrap, synthetic pre-padded splint Medical Decision Making - Medical Decision Making Patient is a 39-year-old male here for right wrist, right hand pain after falling down a few steps today. He denied hitting his head, he has no other injuries from the fall other than this right hand pain. X-rays reveal a possible nondisplaced fourth metacarpal fracture at the base. I did put patient in a posterior splint of the right hand. He will follow up with orthopedics. Recommended alternating Tylenol and Motrin for discomfort, ice to the area. Patient is in agreement this plan of care. He is stable for discharge. Disposition Clinical Impression: Fracture of base of fourth metacarpal bone of right hand Disposition: HOME SELF-CARE Condition: Stable Instructions (If sedation given, give patient instructions): Hand Fracture (ED) Additional Instructions: Please return to the Emergency Department if symptoms worsen or any other concerns. Keep splint in place until follow-up with orthopedics. Please alternate between Tylenol and Motrin for moderate to severe pain. May apply ice to the area, keep hand elevated for swelling control. Follow-up with orthopedics as discussed. Is patient prescribed a controlled substance at d/c from ED?: No Referrals: Jorge Luis Valencia MD [Primary Care Provider] - 1-2 days Isak Morrow MD [STAFF PHYSICIAN] - 1-2 days
== END 2020-04-06 21:48 | disposition home or self-care (01) ==
LOC: EC 19:58
DX: S62.314A Displaced fracture of base of fourth metacarpal bone, right hand, initial encounter for closed fracture (principal); F17.200 Nicotine dependence, unspecified, uncomplicated; Z91.030 Bee allergy status; W10.9XXA Fall (on) (from) unspecified stairs and steps, initial encounter; Y92.009 Unspecified place in unspecified non-institutional (private) residence as the place of occurrence of the external cause
CPT/HCPCS: 29125; 99283

== ENCOUNTER → 2020-07-06 | Outpatient (CLI) | payer OTHER ==
--- NOTE | 2020-07-06 11:30 | MR ---
MRI right hand HISTORY: Trauma and pain, S 62.344D Multiplanar multisequence imaging obtained through the right hand Correlation to plain film 04/06/2020 No abnormal fluid collections. Flexor and extensor tendons are intact. Bone marrow signal is remarkab le for a linear oblique focus which shows decreased signal on T1 and T2-weighted sequences, low signa l on T1 weighted sequences within the proximal fourth metacarpal consistent with nondisplaced intra-a rticular fracture. Some osteoarthritic changes noted at the carpometacarpal joint of the fifth digit, there is some chondral geode formation, marginal spurring, joint space loss. IMPRESSION: Proximal fourth, nondisplaced intra-articular metacarpal fracture is confirmed. 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
== END | disposition home or self-care (01) ==
LOC: RADMRIMAIN 08:40
PROVIDERS: ATTEND Orthopaedic Surgery Hand Surgery
DX: S62.344D Nondisplaced fracture of base of fourth metacarpal bone, right hand, subsequent encounter for fracture with routine healing (principal)

== ENCOUNTER 2022-11-20 10:07 | Emergency (ER) | payer OTHER ==
[2022-11-20] MEDS ORDERED: KETOROLAC 15 MG/ML 1 ML VIAL IVP STA (10:34)
[2022-11-20] MEDS ORDERED: HYDROmorphone 0.5 MG/0.5 ML SYRINGE IVP STA ×2 (10:34→12:57)
[2022-11-20 11:12] LABS: Basophils % (A) 0 %; Eosinophils # (A) 0.1 k/uL (0-0.7); Eosinophils % (A) 1 %; HCT 43.6 % (39.0-53.0); HGB 14.4 gm/dL (13.0-17.5); Lymphocytes # (A) 4.4 k/uL (1.0-4.8); Lymphocytes % (A) 33 %; MCH 32.3 pg (25.0-35.0); MCHC 33.1 g/dL (31.0-37.0); MCV 97.8 fL (80.0-100.0); Mean Platelet Volume 8.6; Monocytes # (A) 0.8 k/uL (0-1.0); Monocytes % (A) 6 %; Neutrophils # (A) 7.7 k/uL (1.3-7.7); Neutrophils % (A) 58 %; Platelet Count 228 k/uL (150-450); RBC 4.46 m/uL (4.30-5.90); WBC 13.2 k/uL (3.8-10.6)
[2022-11-20] MEDS ORDERED: RX INFO: IV CONTRAST WAS GIVEN 1 EACH MISC MISCELLANE PRN (11:17)
--- NOTE | 2022-11-20 11:21 | ED ---
ENT HPI - General Chief complaint: Dental/Oral Stated complaint: wisdom tooth infection sent by urg. care Time Seen by Provider: 11/20/22 10:17 Source: patient, RN notes reviewed Mode of arrival: ambulatory Limitations: no limitations - History of Present Illness Initial comments: This is a 42-year-old male who presents to the emergency department for pain to the right upper jaw. States that he has been dealing with an infection to the wisdom tooth in the right upper jaw for the last week. He just finished a course of Augmentin, but continues to have increasing pain and swelling. He followed up with urgent care today, and they were concerned about an infection spreading into the bone, and instructed him to come to the emergency department. States that he has been unable to sleep due to the pain. Denies any fevers, nausea, or vomiting. He does feel like the swelling is starting to make it hard for him to swallow and speak. Denies any fevers, chills, cough, chest pain, palpitations, abdominal pain, nausea, vomiting, diarrhea, or back pain. MD complaint: tooth pain Onset/Timin -: week(s) - Related Data Previous Rx's Medication Instructions Recorded HYDROcodone/APAP 7.5-325MG [[place] 1 tab PO Q6HR PRN 3 Days #12 tab 11/20/22 7.5-325] clindamycin HCL [Cleocin] 450 mg PO Q8H 7 Days #63 cap 11/20/22 predniSONE 50 mg PO DAILY 5 Days #5 tablet 11/20/22 Allergies Allergy/AdvReac Type Severity Reaction Status Date / Time bee venom protein (honey bee) Allergy Severe Anaphylaxis Verified 11/20/22 10:13 Review of Systems ROS Statement: Those systems with pertinent positive or pertinent negative responses have been documented in the HPI. ROS Other: All systems not noted in ROS Statement are negative. Past Medical History Past Medical History: No Reported History History of Any Multi-Drug Resistant Organisms: None Reported Past Surgical History: No Surgical Hx Reported Past Anesthesia/Blood Transfusion Reactions: Unable to Obtain Additional Past Anesthesia/Blood Transfusion Reaction / Comment(s): Pt has never had surgery. Past Psychological History: No Psychological Hx Reported Smoking Status: Current every day smoker Past Alcohol Use History: None Reported Past Drug Use History: Marijuana - Past Family History Father Family Medical History: Hypertension Additional Family Medical History / Comment(s): Rasta toscano Mother Family Medical History: CVA/TIA Additional Family Medical History / Comment(s): bradycardia General Exam Limitations: no limitations General appearance: alert, in distress Head exam: Present: atraumatic, normocephalic, normal inspection ENT exam: Present: other (Pain and swelling to the right side of the face. Overlying tenderness.) Respiratory exam: Present: wheezes (left upper lobe). Absent: rales, rhonchi, stridor Cardiovascular Exam: Present: regular rate, normal rhythm, normal heart sounds. Absent: systolic murmur, diastolic murmur, rubs, gallop, clicks Neurological exam: Present: alert, oriented X3, CN II-XII intact Psychiatric exam: Present: normal affect, normal mood Course Vital Signs 11/20/22 11/20/22 10:12 13:11 Temperature 98.2 F 98.1 F Pulse Rate 66 60 Respiratory 20 16 Rate Blood Pressure 154/91 122/79 O2 Sat by Pulse 99 100 Oximetry Medical Decision Making - Medical Decision Making This is a 42-year-old male who presents to the emergency department for pain and swelling to the right upper jaw. Was pt. sent in by a medical professional or institution? @ -Urgent Care Did you speak to anyone other than the patient for history? @ -No Did you review nursing and triage notes? @ -Yes, and I agree, it is accurate with regards to the patient's symptoms. Were old charts reviewed? @ -No Differential Diagnosis? @ -Differential Dental Pain: Dental abscess, chipped tooth, dental carries, delio's angina, trigeminal neuralgia, this is not meant to be an all-inclusive list. EKG interpreted by me (3pts min.)? @ -Not obtained X-rays interpreted by me (1pt min.)? @ -Chest x-ray obtained, my interpretation identifies no localized c onsolidations or infiltrates. CT interpreted by me (1pt min.)? @ -Computed tomography scan of the facial bones obtained. My interpretation identifies no evidence of abscess formation. U/S interpreted by me (1pt. min.)? @ -Not obtained What testing was considered but not performed? (CT, X-rays, U/S, labs)? Why? @ -None What meds were considered but not given? Why? @ -None Did you discuss the management of the patient with other professionals? @ -I discussed smoking cessation for greater than 3 minutes. The risk of smoking were discussed with the patient including but not limited to risks of cancer, stroke, coronary artery disease and COPD. Also discussed with patient were multiple methods of quitting smoking. Lastly we discussed the financial cost of smoking. Did you reconcile home meds? @ -No Was smoking cessation discussed for >3mins.? @ -No Was critical care preformed (if so, how long)? @ -No Were there social determinants of health that impacted care today? How? (Homelessness, low income, unemployed, alcoholism, drug addiction, transportation, low edu. Level, literacy, decrease access to med. care, alf, rehab)? @ -No Was there de-escalation of care discussed even if they declined? (Discuss DNR or withdrawal of care, Hospice)? @ -No What co-morbidities impacted this encounter? (DM, HTN, Smoking, COPD, CAD, Cancer, CVA, Hep., AIDS, mental health diagnosis, sleep apnea, morbid obesity)? @ -Smoking Was patient admitted / discharged? @ -Discharged. Lab work obtained revealing leukocytosis, and was otherwise nonactionable. We did obtain a chest x-ray, as the patient had mild wheezing on auscultation. He states that this is not uncommon for him due to his smoking history. X-ray revealed no acute process. Computed tomography scan of the facial bones was obtained as well. This revealed periodontal disease without evidence of abscess formation. Findings discussed with the patient. Given the leukocytosis and continued pain, patient was prescribed clindamycin. Prescription for prednisone and [place] provided as well for additional symptomatic control. He is advised to the [place] sparingly when his pain is the most severe and to avoid driving or operating machinery when taking this. Information for oral surgery follow-up provided. He is instructed to contact them for a follow-up appointment. Undiagnosed new problem with uncertain prognosis? @ -None Drug Therapy requiring intensive monitoring for toxicity (Heparin, Nitro, Insulin, Cardizem)? @ -None Were any procedures done? @ -None Diagnosis/symptom? @ -Dental pain, facial swelling Acute, or Chronic, or Acute on Chronic? @ -Acute Uncomplicated (without systemic symptoms) or Complicated (systemic symptoms)? @ -Uncomplicated Side effects of treatment? @ -None Exacerbation, Progression, or Severe Exacerbation] @ -Not applicable Poses a threat to life or bodily function? @ -No Return precautions reviewed in depth, the patient is instructed to return to the emergency department with any new, worsening, or concerning symptoms. Patient verbalized understanding. This case was discussed in detail with the attending ED physician, Dr. Owens. Presentation, findings, and treatment plan discussed in detail as well. - Lab Data Result diagrams: 11/20/22 11:08 11/20/22 11:08 Lab Results 11/20/22 11/20/22 11/20/22 Range/Units 11:08 11:08 11:08 WBC 13.2 H (3.8-10.6) k/uL RBC 4.46 (4.30-5.90) m/uL Hgb 14.4 (13.0-17.5) gm/dL Hct 43.6 (39.0-53.0) % MCV 97.8 (80.0-100.0) fL MCH 32.3 (25.0-35.0) pg MCHC 33.1 (31.0-37.0) g/dL RDW 13.0 (11.5-15.5) % Plt Count 228 (150-450) k/uL MPV 8.6 Neutrophils % 58 % Lymphocytes % 33 % Monocytes % 6 % Eosinophils % 1 % Basophils % 0 % Neutrophils # 7.7 (1.3-7.7) k/uL Lymphocytes # 4.4 (1.0-4.8) k/uL Monocytes # 0.8 (0-1.0) k/uL Eosinophils # 0.1 (0-0.7) k/uL Basophils # 0.0 (0-0.2) k/uL ESR 3 (0-15) mm/hr Sodium 138 (137-145) mmol/L Potassium 4.3 (3.5-5.1) mmol/L Chloride 105 (98-107) mmol/L Carbon Dioxide 27 (22-30) mmol/L Anion Gap 6 mmol/L BUN 19 (9-20) mg/dL Creatinine 0.95 (0.66-1.25) mg/dL Est GFR (CKD-EPI)AfAm >90 (>60 ml/min/1.73 sqM) Est GFR (CKD-EPI)NonAf >90 (>60 ml/min/1.73 sqM) Glucose 87 (74-99) mg/dL Plasma Lactic Acid Luan 1.1 (0.7-2.0) mmol/L Calcium 8.9 (8.4-10.2) mg/dL Total Bilirubin 0.5 (0.2-1.3) mg/dL AST 25 (17-59) U/L ALT 26 (4-49) U/L Alkaline Phosphatase 46 (38-126) U/L C-Reactive Protein 0.6 (<1.0) mg/dL Total Protein 6.9 (6.3-8.2) g/dL Albumin 4.1 (3.5-5.0) g/dL Influenza Type A (PCR) (Not Detectd) Influenza Type B (PCR) (Not Detectd) RSV (PCR) (Not Detectd) SARS-CoV-2 (PCR) (Not Detectd) 11/20/22 Range/Units 11:08 WBC (3.8-10.6) k/uL RBC (4.30-5.90) m/uL Hgb (13.0-17.5) gm/dL Hct (39.0-53.0) % MCV (80.0-100.0) fL MCH (25.0-35.0) pg MCHC (31.0-37.0) g/dL RDW (11.5-15.5) % Plt Count (150-450) k/uL MPV Neutrophils % % Lymphocytes % % Monocytes % % Eosinophils % % Basophils % % Neutrophils # (1.3-7.7) k/uL Lymphocytes # (1.0-4.8) k/uL Monocytes # (0-1.0) k/uL Eosinophils # (0-0.7) k/uL Basophils # (0-0.2) k/uL ESR (0-15) mm/hr Sodium (137-145) mmol/L Potassium (3.5-5.1) mmol/L Chloride (98-107) mmol/L Carbon Dioxide (22-30) mmol/L Anion Gap mmol/L BUN (9-20) mg/dL Creatinine (0.66-1.25) mg/dL Est GFR (CKD-EPI)AfAm (>60 ml/min/1.73 sqM) Est GFR (CKD-EPI)NonAf (>60 ml/min/1.73 sqM) Glucose (74-99) mg/dL Plasma Lactic Acid Luan (0.7-2.0) mmol/L Calcium (8.4-10.2) mg/dL Total Bilirubin (0.2-1.3) mg/dL AST (17-59) U/L ALT (4-49) U/L Alkaline Phosphatase (38-126) U/L C-Reactive Protein (<1.0) mg/dL Total Protein (6.3-8.2) g/dL Albumin (3.5-5.0) g/dL Influenza Type A (PCR) Not Detected (Not Detectd) Influenza Type B (PCR) Not Detected (Not Detectd) RSV (PCR) Not Detected (Not Detectd) SARS-CoV-2 (PCR) Not Detected (Not Detectd) - Radiology Data Radiology results: report reviewed, image reviewed Disposition Clinical Impression: Pain, dental, Facial swelling, Nicotine dependence Disposition: HOME SELF-CARE Instructions (If sedation given, give patient instructions): Toothache (ED) Additional Instructions: Return to the emergency department with any new, worsening, or concerning symptoms. Start taking the new antibiotic as prescribed for 7 days. You will take the prednisone daily for 5 days. Take the [place] sparingly when your pain is the most severe and otherwise take Tylenol. Be aware that the [place] may make you drowsy and you should avoid driving or operating machinery when taking this. Contact the oral surgeon as listed below as soon as you get home for a follow- up appointment and further evaluation of ongoing symptoms. Follow up with your primary care provider in 1-2 days. Prescriptions: clindamycin HCL [Cleocin] 450 mg PO Q8H 7 Days #63 cap HYDROcodone/APAP 7.5-325MG [[place] 7.5-325] 1 tab PO Q6HR PRN 3 Days #12 tab PRN Reason: Pain predniSONE 50 mg PO DAILY 5 Days #5 tablet Is patient prescribed a controlled substance at d/c from ED?: Yes When asked, does pt state using other controlled substances?: No If prescribed controlled substance>3 days was MAPS reviewed?: Prescribed <3 Days Referrals: Jorge Luis Valencia MD [Primary Care Provider] - 1-2 days Jerod Amaya DDS [STAFF PHYSICIAN] - 1-2 days
[2022-11-20 11:26] LABS: ALT 26 U/L (4-49); AST 25 U/L (17-59); African American GFR (CKD) >90 (>60 ml/min/1.73 sqM); Albumin 4.1 g/dL (3.5-5.0); Alkaline Phosphatase 46 U/L (38-126); Anion Gap 6 mmol/L; Blood Urea Nitrogen 19 mg/dL (9-20); C Reactive Protein 0.6 mg/dL (<1.0); Calcium 8.9 mg/dL (8.4-10.2); Carbon Dioxide 27 mmol/L (22-30); Chloride 105 mmol/L (98-107); Glucose 87 mg/dL (74-99); Non-African American GFR(CKD) >90 (>60 ml/min/1.73 sqM); Potassium 4.3 mmol/L (3.5-5.1); Sodium 138 mmol/L (137-145); Total Bilirubin 0.5 mg/dL (0.2-1.3); Total Protein 6.9 g/dL (6.3-8.2)
--- NOTE | 2022-11-20 11:41 | XR ---
EXAMINATION TYPE: XR chest 2V DATE OF EXAM: 11/20/2022 COMPARISON: 05/29/2019 TECHNIQUE: PA and lateral views submitted. HISTORY: Shortness of breath FINDINGS: The lungs are clear and there is no pneumothorax, pleural effusion, or focal pneumonia. Heart size normal and no overt failure. Osseous structures intact. Biapical pleural thickening. IMPRESSION: 1. No acute process.
--- NOTE | 2022-11-20 12:32 | CT ---
EXAMINATION TYPE: CT facial bones w con CT DLP: 722.8 mGycm, Automated exposure control for dose reduction was used. DATE OF EXAM: 11/20/2022 12:25 PM COMPARISON: None. CLINICAL INDICATION:Male, 42 years old with history of Right upper jaw pain and swelling; PHH, Right upper jaw pain and swelling TECHNIQUE: Multiple unenhanced axial CT images were obtained of the facial bones soft tissue and bone windows. Coronal, axial and sagittal reformatted images were also provided in soft tissue and bone windows and submitted for interpretation. FINDINGS: The right upper jaw second molar periapical lucency with cavity within the molar itself. No organizing fluid collection. There is no evidence of fracture, subluxation, dislocation, or signific ant soft tissue swelling. The orbital contents are unremarkable.The temporal-mandibular joints appear symmetric. Mild scattered paranasal sinus disease. IMPRESSION: Right upper second molar periodontal disease likely correlate with patient's pain. No evidence for ab scess formation.
[2022-11-20 12:40] LABS: Erythrocyte Sedimentation Rate 3 mm/hr (0-15)
[2022-11-20] MEDS ORDERED: DEXAMETHASONE SOD PHOSPHATE 10 MG/ML 1 ML VIAL IVP STA (12:57)
[2022-11-20 13:12] VITALS: BP 122/79; PULSE 60; RESP 16; TEMP 98.1
== END 2022-11-20 13:33 | disposition home or self-care (01) ==
LOC: EC 10:07
DX: K08.89 Other specified disorders of teeth and supporting structures (principal); R22.0 Localized swelling, mass and lump, head; R06.2 Wheezing; F17.210 Nicotine dependence, cigarettes, uncomplicated; F12.90 Cannabis use, unspecified, uncomplicated; Z20.822 Contact with and (suspected) exposure to COVID-19; Z91.030 Bee allergy status
CPT/HCPCS: 36415; 80053; 85652; 83605; 85025; 86140; 87636; 71046; 70487; 99284; 96374; 96375 ×2; 96376; J1100; J1885; J1170; Q9967

== ENCOUNTER 2023-06-09 14:08 | Emergency (ER) | payer OTHER ==
[2023-06-09 14:41] VITALS: BP 152/87; PULSE 69; RESP 16; TEMP 98.8
--- NOTE | 2023-06-09 14:46 | ED ---
General Adult HPI - General Chief complaint: Dental/Oral Stated complaint: tooth pain Time Seen by Provider: 06/09/23 14:38 Source: patient, RN notes reviewed Mode of arrival: ambulatory Limitations: no limitations - History of Present Illness Initial comments: 42-year-old male presents to the emergency department for evaluation of dental pain. He states that this started 2 to 3 days ago. He does note that it is in the upper left wisdom tooth. He states that his worse with eating. He denies recent fever, chills, nausea, vomiting. Denies any difficulty breathing or swallowing. He has been taking ibuprofen for pain which is somewhat helpful. He states that he was not able to get into his dentist today because it is the weekend. - Related Data Previous Rx's Medication Instructions Recorded HYDROcodone/APAP 7.5-325MG [[place] 1 tab PO Q6HR PRN 3 Days #12 tab 11/20/22 7.5-325] clindamycin HCL [Cleocin] 450 mg PO Q8H 7 Days #63 cap 11/20/22 predniSONE 50 mg PO DAILY 5 Days #5 tablet 11/20/22 Amoxic-Pot Clav 875-125Mg 1 tab PO Q12HR 7 Days #14 tab 06/09/23 [Augmentin 875-125] Allergies Allergy/AdvReac Type Severity Reaction Status Date / Time bee venom protein (honey bee) Allergy Severe Anaphylaxis Verified 11/20/22 10:13 Review of Systems ROS Statement: Those systems with pertinent positive or pertinent negative responses have been documented in the HPI. ROS Other: All systems not noted in ROS Statement are negative. Past Medical History Past Medical History: No Reported History History of Any Multi-Drug Resistant Organisms: None Reported Past Surgical History: No Surgical Hx Reported Past Anesthesia/Blood Transfusion Reactions: Unable to Obtain Additional Past Anesthesia/Blood Transfusion Reaction / Comment(s): Pt has never had surgery. Past Psychological History: No Psychological Hx Reported Smoking Status: Current every day smoker Past Alcohol Use History: None Reported Past Drug Use History: Marijuana - Past Family History Father Family Medical History: Hypertension Additional Family Medical History / Comment(s): Rasta toscano Mother Family Medical History: CVA/TIA Additional Family Medical History / Comment(s): bradycardia General Exam Limitations: no limitations General appearance: alert, in no apparent distress Head exam: Present: atraumatic, normocephalic, normal inspection Eye exam: Present: normal appearance, PERRL, EOMI. Absent: scleral icterus, conjunctival injection, periorbital swelling ENT exam: Present: mucous membranes moist, TM's normal bilaterally, normal external ear exam, other (Tenderness of the left upper wisdom tooth, No visible drainable abscess) Neck exam: Present: normal inspection. Absent: tenderness, meningismus, lymphadenopathy Respiratory exam: Present: normal lung sounds bilaterally. Absent: respiratory distress, wheezes, rales, rhonchi, stridor Cardiovascular Exam: Present: regular rate, normal rhythm, normal heart sounds. Absent: systolic murmur, diastolic murmur, rubs, gallop, clicks Extremities exam: Present: normal inspection, full ROM, normal capillary refill. Absent: tenderness, pedal edema, joint swelling, calf tenderness Back exam: Present: normal inspection Neurological exam: Present: alert, oriented X3 Psychiatric exam: Present: normal affect, normal mood Skin exam: Present: warm, dry, intact, normal color. Absent: rash Course Vital Signs 06/09/23 14:33 Temperature 98.8 F Pulse Rate 69 Respiratory 16 Rate Blood Pressure 152/87 O2 Sat by Pulse 98 Oximetry Medical Decision Making - Medical Decision Making Was pt. sent in by a medical professional or institution (, PA, TECHNICAL ASSISTANCE CONSULTANT, urgent care, hospital, or prison...) When possible be specific @ -No Did you speak to anyone other than the patient for history (EMS, parent, family, police, friend...)? What history was obtained from this source @ -No Did you review nursing and triage notes (agree or disagree)? Why? @ -I reviewed and agree with nursing and triage notes Were old charts reviewed (outside hosp., previous admission, EMS record, old EKG, old radiological studies, urgent care reports/EKG's, prison records)? Report findings @ -No old charts were reviewed Differential Diagnosis (chest pain, altered mental status, abdominal pain women, abdominal pain men, vaginal bleeding, weakness, fever, dyspnea, syncope, headache, dizziness, GI bleed, back pain, seizure, CVA, palpatations, mental health, musculoskeletal)? @ -Dental infection, dental abscess, dental appliance issue, parotiditis, strep throat, this list is not all inclusive EKG interpreted by me (3pts min.). @ -None X-rays interpreted by me (1pt min.). @ -None done CT interpreted by me (1pt min.). @ -None done U/S interpreted by me (1pt. min.). @ -None done What testing was considered but not performed or refused? (CT, X-rays, U/S, labs)? Why? @ -None What meds were considered but not given or refused? Why? @ -None Did you discuss the management of the patient with other professionals (alisha tinoco i.eGriselda Castro, PA, TECHNICAL ASSISTANCE CONSULTANT, lab, RT, psych nurse, sexual assault social worker, senior production supervisor, teacher, foreign policy officer, disease case manager)? Give summary @ -No Was smoking cessation discussed for >3mins.? @ -No Was critical care preformed (if so, how long)? @ -No Were there social determinants of health that impacted care today? How? (Homelessness, low income, unemployed, alcoholism, drug addiction, transportation, low edu. Level, literacy, decrease access to med. care, fdc, rehab)? @ -No Was there de-escalation of care discussed even if they declined (Discuss DNR or withdrawal of care, Hospice)? DNR status @ -No What co-morbidities impacted this encounter? (DM, HTN, Smoking, COPD, CAD, Cancer, CVA, ARF, Chemo, Hep., AIDS, mental health diagnosis, sleep apnea, morbid obesity)? @ -None Was patient admitted / discharged? Hospital course, mention meds given and route, prescriptions, significant lab abnormalities, going to OR and other pertinent info. @ -Discharge. Patient presented to the emergency department for evaluation of left upper dentition pain. He states that the pain is in his left upper wisdom tooth. This has been going on for around 2-3 days. There is no visible drainable abscess, no lymphadenopathy, normal TMs. Patient will be provided medication for pain control and antibiotics. Advised to follow-up with his dentist. Patient understanding and agreeable with this plan. Patient stable at time of discharge. Case discussed with Dr. Doss Undiagnosed new problem with uncertain prognosis? @ -No Drug Therapy requiring intensive monitoring for toxicity (Heparin, Nitro, Insulin, Cardizem)? @ -No Were any procedures done? @ -No Diagnosis/symptom? @ -Dental pain Acute, or Chronic, or Acute on Chronic? @ -acute Uncomplicated (without systemic symptoms) or Complicated (systemic symptoms)? @ -Uncomplicated Side effects of treatment? @ -No Exacerbation, Progression, or Severe Exacerbation? @ -No Poses a threat to life or bodily function? How? (Chest pain, [place], [place], pneumonia, PE, COPD, DKA, ARF, appy, cholecystitis, CVA, Diverticulitis, Homicidal, Suicidal, threat to staff... and all critical care pts) @ -No Disposition Clinical Impression: Dental abscess Disposition: HOME SELF-CARE Condition: Stable Instructions (If sedation given, give patient instructions): Toothache (ED) Additional Instructions: Please follow-up with your dentist. Take antibiotics to completion. Utilize ibuprofen with pain medication. Return to the emergency department for new or worsening symptoms. Prescriptions: Amoxic-Pot Clav 875-125Mg [Augmentin 875-125] 1 tab PO Q12HR 7 Days #14 tab Is patient prescribed a controlled substance at d/c from ED?: No Referrals: Jorge Luis Valencia MD [Primary Care Provider] - 1-2 days
[2023-06-09] MEDS: KETOROLAC 15 MG/ML 1 ML VIAL IM STA (15:33)
[2023-06-09] MEDS: ACET/COD 300 MG/30 MG STARTER PACK 6 TAB BTL PO STA (15:33)
[2023-06-09] MEDS: HYDROcodone/APAP 5-325MG 1 EACH TAB PO STA (15:33)
== END 2023-06-09 15:40 | disposition home or self-care (01) ==
LOC: EC 14:08
DX: K04.7 Periapical abscess without sinus (principal); F17.200 Nicotine dependence, unspecified, uncomplicated; Z91.030 Bee allergy status
CPT/HCPCS: 99282; 96372; J1885

== ENCOUNTER 2024-06-11 20:20 | Emergency (ER) | payer OTHER ==
--- NOTE | 2024-06-11 22:19 | ED ---
General Adult HPI <Liest Moreira - Last Filed: 06/12/24 01:44> - General Source: patient, RN notes reviewed Mode of arrival: ambulatory Limitations: no limitations <Elina Ram - Last Filed: 06/13/24 02:07> - General Chief complaint: Abdominal Pain Stated complaint: ABD pain Time Seen by Provider: 06/11/24 21:06 - History of Present Illness Initial comments: 43-year-old male presents to the emergency department for evaluation of right- sided abdominal pain. Patient states that this started around 3 AM today. He reports that the pain has progressively been worsening. He denies any fever adm its to chills. Admits to nausea without vomiting. He reports decrease in urinary frequency. He reports increased urge to urinate. Denies any prior abdominal surgeries. He does report a history of hypertension but is not currently being treated for this. (Elina Ram) - Related Data Previous Rx's Medication Instructions Recorded HYDROcodone/APAP 7.5-325MG [Baldwin 1 tab PO Q6HR PRN 3 Days #12 tab 11/20/22 7.5-325] clindamycin HCL [Cleocin] 450 mg PO Q8H 7 Days #63 cap 11/20/22 predniSONE 50 mg PO DAILY 5 Days #5 tablet 11/20/22 Amoxic-Pot Clav 875-125Mg 1 tab PO Q12HR 7 Days #14 tab 06/09/23 [Augmentin 875-125] Amoxic-Pot Clav 875-125Mg 1 tab PO Q12HR 10 Days #20 tab 06/12/24 [Augmentin 875-125] Allergies Allergy/AdvReac Type Severity Reaction Status Date / Time bee venom protein (honey bee) Allergy Severe Anaphylaxis Verified 11/20/22 10:13 Review of Systems ROS Other: All systems not noted in ROS Statement are negative. <Liset Moreira - Last Filed: 06/12/24 01:44> ROS Other: All systems not noted in ROS Statement are negative. <Elina Ram - Last Filed: 06/13/24 02:07> ROS Statement: Those systems with pertinent positive or pertinent negative responses have been documented in the HPI. Past Medical History Past Medical History: No Reported History History of Any Multi-Drug Resistant Organisms: None Reported Past Surgical History: No Surgical Hx Reported Past Anesthesia/Blood Transfusion Reactions: Unable to Obtain Additional Past Anesthesia/Blood Transfusion Reaction / Comment(s): Pt has never had surgery. Past Psychological History: No Psychological Hx Reported Smoking Status: Current every day smoker Past Alcohol Use History: None Reported Past Drug Use History: Marijuana - Past Family History Father Family Medical History: Hypertension Additional Family Medical History / Comment(s): Willard palsey Mother Family Medical History: CVA/TIA Additional Family Medical History / Comment(s): bradycardia <Elina Ram - Last Filed: 06/13/24 02:07> General Exam Limitations: no limitations General appearance: alert, in no apparent distress Head exam: Present: atraumatic, normocephalic, normal inspection Eye exam: Present: normal appearance, PERRL, EOMI. Absent: scleral icterus, conjunctival injection, periorbital swelling ENT exam: Present: normal exam, mucous membranes moist Neck exam: Present: normal inspection. Absent: tenderness, meningismus, lymphadenopathy Respiratory exam: Present: normal lung sounds bilaterally. Absent: respiratory distress, wheezes, rales, rhonchi, stridor Cardiovascular Exam: Present: regular rate, normal rhythm, normal heart sounds. Absent: systolic murmur, diastolic murmur, rubs, gallop, clicks GI/Abdominal exam: Present: soft, tenderness, normal bowel sounds. Absent: distended, guarding, rebound, rigid Extremities exam: Present: normal inspection, full ROM, normal capillary refill. Absent: tenderness, pedal edema, joint swelling, calf tenderness Back exam: Present: normal inspection Neurological exam: Present: alert, oriented X3 Psychiatric exam: Present: normal affect, normal mood Skin exam: Present: warm, dry, intact, normal color. Absent: rash <Elina Ram - Last Filed: 06/13/24 02:07> Course Vital Signs 06/11/24 06/12/24 06/12/24 20:39 00:31 02:00 Temperature 98 F 97.7 F 97.7 F Pulse Rate 82 78 65 Respiratory 20 20 18 Rate Blood Pressure 141/89 120/78 129/74 O2 Sat by Pulse 98 97 98 Oximetry Medical Decision Making - Lab Data Result diagrams: 06/11/24 22:22 06/11/24 21:49 <Liset Moreira - Last Filed: 06/12/24 01:44> - Lab Data Result diagrams: 06/11/24 22:22 06/11/24 21:49 <Elina Ram - Last Filed: 06/13/24 02:07> - Medical Decision Making Was pt. sent in by a medical professional or institution (BRIAN Castro, CIRCUIT BOARD INSPECTOR, urgent care, hospital, or senior living...) When possible be specific @ -No Did you speak to anyone other than the patient for history (EMS, parent, family, police, friend...)? What history was obtained from this source @ -No Did you review nursing and triage notes (agree or disagree)? Why? @ -I reviewed and agree with nursing and triage notes Were old charts reviewed (outside hosp., previous admission, EMS record, old EKG, old radiological studies, urgent care reports/EKG's, senior living records)? Report findings @ -No old charts were reviewed Differential Diagnosis (chest pain, altered mental status, abdominal pain women, abdominal pain men, vaginal bleeding, weakness, fever, dyspnea, syncope, headache, dizziness, GI bleed, back pain, seizure, CVA, palpatations, mental health, musculoskeletal)? @ -Differential Abdominal Pain Men: Appendicitis, cholecystitis, diverticulosis, ischemic bowel, pancreatitis, hepatitis, UTI, gastroenteritis, AAA, incarcerated hernia, bowel obstruction, constipation, inflammatory bowel, hepatitis, peptic ulcer disease, splenic infarction, perforated viscus, testicular torsion, this is not meant to be an all-inclusive list EKG interpreted by me (3pts min.). @ -None X-rays interpreted by me (1pt min.). @ -None done CT interpreted by me (1pt min.). @ -CT abdomen pelvis shows findings consistent with colitis moderate pericolonic fat stranding with no free air no organizing abscess] U/S interpreted by me (1pt. min.). @ -None done What testing was considered but not performed or refused? (CT, X-rays, U/S, labs)? Why? @ -None What meds were considered but not given or refused? Why? @ -None Did you discuss the management of the patient with other professionals (professionals i.e. BRIAN Castro, CIRCUIT BOARD INSPECTOR, lab, RT, psych nurse, protective services social worker, radiator core tester, teacher, environmental technical officer, correctional case records supervisor)? Give summary @ -No Was smoking cessation discussed for >3mins.? @ -No Was critical care preformed (if so, how long)? @ -No Were there social determinants of health that impacted care today? How? (Homelessness, low income, unemployed, alcoholism, drug addiction, transportation, low edu. Level, literacy, decrease access to med. care, penitentiary, rehab)? @ -No Was there de-escalation of care discussed even if they declined (Discuss DNR or withdrawal of care, Hospice)? DNR status @ -No What co-morbidities impacted this encounter? (DM, HTN, Smoking, COPD, CAD, Cancer, CVA, ARF, Chemo, Hep., AIDS, mental health diagnosis, sleep apnea, morbid obesity)? @ -None Was patient admitted / discharged? Hospital course, mention meds given and route, prescriptions, significant lab abnormalities, going to OR and other p ertinent info. @ -Patient presented the emergency department for evaluation of abdominal pain. Laboratory studies were obtained revealing leukocytosis at 14.3, hemoglobin 14.7; CMP nonactionable, no significant lactic acidosis; UA shows no evidence of infectious process. CT of the abdomen pelvis was obtained pending results, patient was signed out to Liset Moreira PA-C for scan results and d isposition. The findings of the CT showed revealing findings consistent with colitis with moderate pericolonic fat stranding, no free air or organizing abscess. Patient was started on antibiotics and discharged home. Undiagnosed new problem with uncertain prognosis? @ -No Drug Therapy requiring intensive monitoring for toxicity (Heparin, Nitro, Insulin, Cardizem)? @ -No Were any procedures done? @ -No Diagnosis/symptom? @ -Colitis Acute, or Chronic, or Acute on Chronic? @ -Acute Uncomplicated (without systemic symptoms) or Complicated (systemic symptoms)? @ -Uncomplicated Side effects of treatment? @ -No Exacerbation, Progression, or Severe Exacerbation? @ -No Poses a threat to life or bodily function? How? (Chest pain, [place], [place], pneumonia, PE, COPD, DKA, ARF, appy, cholecystitis, CVA, Diverticulitis, Homicidal, Suicidal, threat to staff... and all critical care pts) @ -No (Elina Ram) - Lab Data Lab Results 06/11/24 06/11/2425 Range/Units 21:49 21:49 21:49 WBC (3.8-10.6) k/uL RBC (4.30-5.90) m/uL Hgb (13.0-17.5) gm/dL Hct (39.0-53.0) % MCV (80.0-100.0) fL MCH (25.0-35.0) pg MCHC (31.0-37.0) g/dL RDW (11.5-15.5) % Plt Count (150-450) k/uL MPV Neutrophils % % Lymphocytes % % Monocytes % % Eosinophils % % Basophils % % Neutrophils # (1.3-7.7) k/uL Lymphocytes # (1.0-4.8) k/uL Monocytes # (0-1.0) k/uL Eosinophils # (0-0.7) k/uL Basophils # (0-0.2) k/uL Sodium 135 L (137-145) mmol/L Potassium 3.6 (3.5-5.1) mmol/L Chloride 100 (98-107) mmol/L Carbon Dioxide 27 (22-30) mmol/L Anion Gap 8 mmol/L BUN 12 (9-20) mg/dL Creatinine 0.90 (0.66-1.25) mg/dL Est GFR (CKD-EPI)AfAm >90 (>60 ml/min/1.73 sqM) Est GFR (CKD-EPI)NonAf >90 (>60 ml/min/1.73 sqM) Glucose 97 (74-99) mg/dL Plasma Lactic Acid Luan 1.1 (0.7-2.0) mmol/L Calcium 9.1 (8.4-10.2) mg/dL Total Bilirubin 1.0 (0.2-1.3) mg/dL AST 23 (17-59) U/L ALT 32 (4-49) U/L Alkaline Phosphatase 47 (38-126) U/L Total Protein 6.8 (6.3-8.2) g/dL Albumin 4.1 (3.5-5.0) g/dL Amylase 60 (30-110) U/L Lipase 55 (23-300) U/L Urine Color Colorless Urine Appearance Clear (Clear) Urine pH 6.5 (5.0-8.0) Ur Specific [place] 1.012 (1.001-1.035) Urine Protein Negative (Negative) Urine Glucose (UA) Negative (Negative) Urine Ketones Negative (Negative) Urine Blood Negative (Negative) Urine Nitrite Negative (Negative) Urine Bilirubin Negative (Negative) Urine Urobilinogen <2.0 (<2.0) mg/dL Ur Leukocyte Esterase Negative (Negative) 06/11/24 Range/Units 22:22 WBC 14.3 H (3.8-10.6) k/uL RBC 4.70 (4.30-5.90) m/uL Hgb 14.7 (13.0-17.5) gm/dL Hct 44.5 (39.0-53.0) % MCV 94.8 (80.0-100.0) fL MCH 31.4 (25.0-35.0) pg MCHC 33.1 (31.0-37.0) g/dL RDW 13.1 (11.5-15.5) % Plt Count 216 (150-450) k/uL MPV 8.2 Neutrophils % 67 % Lymphocytes % 24 % Monocytes % 7 % Eosinophils % 0 % Basophils % 0 % Neutrophils # 9.6 H (1.3-7.7) k/uL Lymphocytes # 3.4 (1.0-4.8) k/uL Monocytes # 1.0 (0-1.0) k/uL Eosinophils # 0.0 (0-0.7) k/uL Basophils # 0.1 (0-0.2) k/uL Sodium (137-145) mmol/L Potassium (3.5-5.1) mmol/L Chloride (98-107) mmol/L Carbon Dioxide (22-30) mmol/L Anion Gap mmol/L BUN (9-20) mg/dL Creatinine (0.66-1.25) mg/dL Est GFR (CKD-EPI)AfAm (>60 ml/min/1.73 sqM) Est GFR (CKD-EPI)NonAf (>60 ml/min/1.73 sqM) Glucose (74-99) mg/dL Plasma Lactic Acid Luan (0.7-2.0) mmol/L Calcium (8.4-10.2) mg/dL Total Bilirubin (0.2-1.3) mg/dL AST (17-59) U/L ALT (4-49) U/L Alkaline Phosphatase (38-126) U/L Total Protein (6.3-8.2) g/dL Albumin (3.5-5.0) g/dL Amylase (30-110) U/L Lipase (23-300) U/L Urine Color Urine Appearance (Clear) Urine pH (5.0-8.0) Ur Specific [place] (1.001-1.035) Urine Protein (Negative) Urine Glucose (UA) (Negative) Urine Ketones (Negative) Urine Blood (Negative) Urine Nitrite (Negative) Urine Bilirubin (Negative) Urine Urobilinogen (<2.0) mg/dL Ur Leukocyte Esterase (Negative) Disposition Is patient prescribed a controlled substance at d/c from ED?: No Time of Disposition: 01:45 <Liset Moreira - Last Filed: 06/12/24 01:44> Is patient prescribed a controlled substance at d/c from ED?: No <Elina Ram - Last Filed: 06/13/24 02:07> Clinical Impression: Colitis Disposition: HOME SELF-CARE Condition: Good Instructions (If sedation given, give patient instructions): Colitis (ED) Additional Instructions: Follow-up with PCP. Report back to ER with any new or worsening symptoms. Take medication as prescribed. Prescriptions: Amoxic-Pot Clav 875-125Mg [Augmentin 875-125] 1 tab PO Q12HR 10 Days #20 tab Referrals: Jorge Luis Valencia MD [Primary Care Provider] - 1-2 days
[2024-06-11] MEDS: SODIUM CHLORIDE 0.9% 1,000 ML IV ONE (22:27)
[2024-06-11] MEDS: KETOROLAC 15 MG/ML 1 ML VIAL IVP STA (22:28)
[2024-06-11] MEDS: ONDANSETRON 4 MG/2 ML VIAL IVP STA (22:28)
[2024-06-11 22:36] LABS: Basophils # (A) 0.1 k/uL (0-0.2); Basophils % (A) 0 %; Eosinophils % (A) 0 %; HCT 44.5 % (39.0-53.0); HGB 14.7 gm/dL (13.0-17.5); Lymphocytes # (A) 3.4 k/uL (1.0-4.8); Lymphocytes % (A) 24 %; MCH 31.4 pg (25.0-35.0); MCHC 33.1 g/dL (31.0-37.0); MCV 94.8 fL (80.0-100.0); Mean Platelet Volume 8.2; Monocytes % (A) 7 %; Neutrophils # (A) 9.6 k/uL (1.3-7.7); Neutrophils % (A) 67 %; Platelet Count 216 k/uL (150-450); RDW 13.1 % (11.5-15.5); WBC 14.3 k/uL (3.8-10.6)
[2024-06-11 22:37] LABS: Appearance,Urine Clear (Clear); Bilirubin,Urine Negative (Negative); Blood,Urine Negative (Negative); Color,Urine Colorless; Glucose,Urine (UA) Negative (Negative); Ketones,Urine Negative (Negative); Leukocyte Esterase,Urine Negative (Negative); Nitrite,Urine Negative (Negative); PH, Urine 6.5 (5.0-8.0); Protein,Urine Negative (Negative); Specific Gravity,Urine 1.012 (1.001-1.035); Urobilinogen,Urine <2.0 mg/dL (<2.0)
[2024-06-11 22:39] LABS: ALT 32 U/L (4-49); AST 23 U/L (17-59); African American GFR (CKD) >90 (>60 ml/min/1.73 sqM); Albumin 4.1 g/dL (3.5-5.0); Alkaline Phosphatase 47 U/L (38-126); Amylase 60 U/L (30-110); Anion Gap 8 mmol/L; Blood Urea Nitrogen 12 mg/dL (9-20); Calcium 9.1 mg/dL (8.4-10.2); Carbon Dioxide 27 mmol/L (22-30); Chloride 100 mmol/L (98-107); Glucose 97 mg/dL (74-99); Lipase 55 U/L (23-300); Non-African American GFR(CKD) >90 (>60 ml/min/1.73 sqM); Potassium 3.6 mmol/L (3.5-5.1); Sodium 135 mmol/L (137-145); Total Protein 6.8 g/dL (6.3-8.2)
[2024-06-12 00:32] VITALS: TEMP 97.7
[2024-06-12] MEDS: MORPHINE SULFATE 4 MG/ML SYRINGE IVP STA (00:52)
--- NOTE | 2024-06-12 01:25 | CT ---
EXAM: CT Abdomen and Pelvis With Intravenous Contrast CLINICAL HISTORY: ITS.REASON CT Reason: abdominal pain TECHNIQUE: Axial computed tomography images of the abdomen and pelvis with intravenous contrast. CTDI is 33.7 mGy and DLP is 1981 mGy-cm. This CT exam was performed using one or more of the following dose reduction techniques: automated exposure control, adjustment of the mA and/or kV according to patient size, and/or use of iterative reconstruction technique. COMPARISON: No relevant prior studies available. FINDINGS: Lung bases: Unremarkable. No mass. No consolidation. ABDOMEN: Liver: Hepatic steatosis. Gallbladder and bile ducts: Unremarkable. No calcified stones. No ductal dilation. Pancreas: Unremarkable. No mass. No ductal dilation. Spleen: Unremarkable. No splenomegaly. Adrenals: Unremarkable. No mass. Kidneys and ureters: Unremarkable. No solid mass. No hydronephrosis. Stomach and bowel: Wall thickening of the sigmoid colon, consistent with colitis. Moderate pericolonic fat stranding. No free air. No organizing abscess. No obstruction. PELVIS: Appendix: No findings to suggest acute appendicitis. Bladder: Unremarkable. No mass. Reproductive: Unremarkable as visualized. ABDOMEN and PELVIS: Intraperitoneal space: See above. Bones/joints: No acute fracture. No dislocation. Soft tissues: Unremarkable. Vasculature: Unremarkable. No abdominal aortic aneurysm. Lymph nodes: Unremarkable. No enlarged lymph nodes. IMPRESSION: Wall thickening of the sigmoid colon, consistent with colitis. Moderate pericolonic fat stranding. No free air. No organizing abscess.
[2024-06-12] MEDS: AMOXIC-POT CLAV 875-125MG 1 EACH TAB PO STA (01:57)
[2024-06-12 02:01] VITALS: BP 129/74; PULSE 65; RESP 18
== END 2024-06-12 02:01 | disposition home or self-care (01) ==
LOC: EC 20:20
DX: K52.9 Noninfective gastroenteritis and colitis, unspecified (principal); F17.200 Nicotine dependence, unspecified, uncomplicated; Z91.030 Bee allergy status
CPT/HCPCS: 51798; 36415; 80053; 82150; 83605; 83690; 85025; 81003; 74177; 99284; 96374; 96375 ×2; 96361 ×2; J2405; J1885; Q9967